=== PATIENT | male | born 1975 | race Caucasian/White ===

== ENCOUNTER 2020-04-20 09:21 | Emergency (ER) | payer OTHER ==
[~2020-04-20 09:21] MED LIST: ASPIRIN325 MG PO; AUGMENTIN 875-1 EACH PO; AZITHROMYCIN250 MG PO; CEFDINIR300 MG PO; DUONEB 2.5-0.5M1 AMP NEB; HYDROCODON-ACE1 EAC6 PO; LIPITOR20 MG PO; MEDROL 4MG DOSEP4 MG PO; NAPROSYN375 MG PO; NEXIUM20 MG PO; NORCO 5-325 TA1 EACH PO; PREDNISONE 20MG20 MG PO; PRILOSEC20 MG PO; VENTOLIN HFA IN18 GM INH; ZESTRIL5 MG PO; ZOFRAN4 MG PO
[2020-04-20 10:49] LABS: BASOPHIL 0.3 % (0-2); EOSINOPHIL 1.1 % (0-5); HCT 47.1 % (42.0-52.0); LYMPHOCYTE 12.4 % (15-48); MCH 30.4 pg (25.0-31.0); MCV 89.5 fL (78.0-100.0); MONOCYTE 6.1 % (0-12); MPV 9.6 fL (6.0-9.5); NEUTROPHIL 79.7 % (41-80); NRBC 0; PLT 253 K/uL (150-400); RBC 5.26 M/uL (4.70-6.00); RDW 13.1 % (11.5-14.0)
[2020-04-20 10:57] LABS: INR 0.98 (0.9-1.2); PROTHROMBIN TIME 12.3 SECONDS (11.4-13.6); PTT 30.1 SECONDS (22.2-34.7)
[2020-04-20 10:58] LABS: D-DIMER 0.54 ug/mLFEU (0.00-0.41)
[2020-04-20 11:11] LABS: PRO-BNP 21 pg/mL (<125)
[2020-04-20 11:15] LABS: ALBUMIN 3.8 g/dL (3.4-5.0); BILIRUBIN - TOTAL 0.3 mg/dL (0.2-1.0); BUN/CREAT RATIO (CALC) 20.2 RATIO; C-REACTIVE PROTEIN 0.3 mg/dL (<=0.90); CREATININE 1.04 mg/dL (0.67-1.17); GLOBULIN (CALCULATION) 3.9 g/dL; MAGNESIUM 1.9 mg/dL (1.8-2.4); POTASSIUM 4.1 mmol/L (3.5-5.1); TOTAL PROTEIN 7.7 g/dL (6.4-8.2)
[2020-04-20 11:37] LABS: LACTIC ACID 1.2 mmol/L (0.4-1.9)
[2020-04-20] MEDS ORDERED: MEDROL 4MG DOSEP4 MG PO (12:28)
[2020-04-20] MEDS ORDERED: VIBRAMYCIN100 MG PO (12:28)
[2020-04-20] MEDS ORDERED: VENTOLIN HFA18 GM INH (12:28)
[2020-04-20] MEDS ORDERED: NORCO 5-325 TA1 EACH PO (12:28)
== END 2020-04-20 12:45 | disposition home or self-care (01) ==
LOC: FER 09:21
PROVIDERS: Emergency Medicine
DX: J44.9 Chronic obstructive pulmonary disease, unspecified (principal); R07.81 Pleurodynia; I10 Essential (primary) hypertension; F17.210 Nicotine dependence, cigarettes, uncomplicated; Z87.01 Personal history of pneumonia (recurrent); Z20.822 Contact with and (suspected) exposure to COVID-19
CPT/HCPCS: 36415; 71275; 80053; 82550; 82728; 83605; 83615; 83735; 83880; 84145; 84484; 85025; 85379; 85610; 85730; 86140; 87040; 93005; J1170; J1885; J2405; Q9967; U0002

== ENCOUNTER 2020-07-10 06:07 | Emergency (ER) | payer OTHER ==
[~2020-07-10 06:07] MED LIST changes: +VENTOLIN HFA18 GM INH; +VIBRAMYCIN100 MG PO
[2020-07-10 06:57] LABS: BASOPHIL 0.5 % (0-2); EOSINOPHIL 1.3 % (0-5); HCT 48.7 % (42.0-52.0); MCH 30.5 pg (25.0-31.0); MCHC 34.9 g/dL (32.0-36.0); MCV 87.4 fL (78.0-100.0); MONOCYTE 7.2 % (0-12); MPV 9.1 fL (6.0-9.5); NEUTROPHIL 69.6 % (41-80); NRBC 0; PLT 231 K/uL (150-400); RBC 5.57 M/uL (4.70-6.00); WBC 10.4 K/uL (4.0-10.5)
[2020-07-10 07:11] LABS: ALBUMIN 3.9 g/dL (3.4-5.0); BILIRUBIN - TOTAL 0.6 mg/dL (0.2-1.0); BUN/CREAT RATIO (CALC) 22.9 RATIO; CREATININE 0.96 mg/dL (0.67-1.17); GLOBULIN (CALCULATION) 3.2 g/dL; POTASSIUM 4.2 mmol/L (3.5-5.1); TOTAL PROTEIN 7.1 g/dL (6.4-8.2)
[2020-07-10] MEDS ORDERED: MEDROL 4MG DOSEP4 MG PO (08:03)
[2020-07-10] MEDS ORDERED: PEPCID AC20 MG PO (08:03)
[2020-07-10] MEDS ORDERED: CARAFATE1 GM PO (08:03)
[2020-07-10 08:30] LABS: BILIRUBIN NEGATIVE (NEGATIVE); BLOOD NEGATIVE Ery/uL (NEGATIVE); CLARITY CLEAR (CLEAR); COLOR YELLOW (YELLOW); GLUCOSE (U) NORMAL (NORMAL); LEUKOCYTES NEGATIVE Leu/uL (NEGATIVE); NITRITE NEGATIVE (NEGATIVE); PROTEIN NEGATIVE (NEGATIVE); SPECIFIC GRAVITY 1.025 (1.001-1.030); UROBILINOGEN 0.2 mg/dL (0.2-1.0)
== END 2020-07-10 08:51 | disposition home or self-care (01) ==
LOC: FER 06:07
PROVIDERS: Emergency Medicine
DX: K21.9 Gastro-esophageal reflux disease without esophagitis (principal); M54.5 Low back pain; R10.13 Epigastric pain; R11.0 Nausea; J02.9 Acute pharyngitis, unspecified; I10 Essential (primary) hypertension; E78.5 Hyperlipidemia, unspecified; F17.210 Nicotine dependence, cigarettes, uncomplicated; Z98.52 Vasectomy status; Z79.899 Other long term (current) drug therapy; Z20.822 Contact with and (suspected) exposure to COVID-19
CPT/HCPCS: 36415; 72100; 80053; 81003; 85025; 87880; J1170; J1885; J2405; J7030; U0002

== ENCOUNTER 2021-05-28 09:02 | Emergency (ER) | payer OTHER ==
[~2021-05-28 09:02] MED LIST changes: +CARAFATE1 GM PO; +PEPCID AC20 MG PO
[2021-05-28 09:39] LABS: BASOPHIL 0.4 % (0-2); EOSINOPHIL 0.9 % (0-5); HCT 51.8 % (42.0-52.0); HGB 17.8 g/dl (13.2-18.0); LYMPHOCYTE 13.5 % (15-48); MCH 30.4 pg (25.0-31.0); MCHC 34.4 g/dL (32.0-36.0); MCV 88.4 fL (78.0-100.0); MONOCYTE 7.5 % (0-12); MPV 9.3 fL (6.0-9.5); NEUTROPHIL 77.3 % (41-80); NRBC 0; PLT 283 K/uL (150-400); RBC 5.86 M/uL (4.70-6.00); RDW 13.2 % (11.5-14.0); WBC 11.4 K/uL (4.0-10.5)
[2021-05-28 09:53] LABS: ALBUMIN 4.1 g/dL (3.4-5.0); BILIRUBIN - TOTAL 0.9 mg/dL (0.2-1.0); BUN/CREAT RATIO (CALC) 20.8 RATIO; CREATININE 1.06 mg/dL (0.67-1.17); GLOBULIN (CALCULATION) 3.6 g/dL; POTASSIUM 3.8 mmol/L (3.5-5.1); TOTAL PROTEIN 7.7 g/dL (6.4-8.2)
== END 2021-05-28 19:50 | disposition home or self-care (01) ==
LOC: FER 09:02
PROVIDERS: Emergency Medicine
DX: R07.9 Chest pain, unspecified (principal); I10 Essential (primary) hypertension; F17.200 Nicotine dependence, unspecified, uncomplicated; Z20.822 Contact with and (suspected) exposure to COVID-19
CPT/HCPCS: 36415; 71045; 80053; 83735; 84484; 85025; 93005; C9113; J2270; J2405; U0002

== ENCOUNTER 2021-11-06 15:11 | Emergency (ER) | payer OTHER ==
[2021-11-06 15:36] LABS: BASOPHIL 0.4 % (0-2); EOSINOPHIL 0.8 % (0-5); HCT 47.2 % (42.0-52.0); HGB 16.4 g/dl (13.2-18.0); LYMPHOCYTE 13.4 % (15-48); MCH 30.6 pg (25.0-31.0); MCHC 34.7 g/dL (32.0-36.0); MCV 88.1 fL (78.0-100.0); MONOCYTE 7.7 % (0-12); MPV 8.9 fL (6.0-9.5); NEUTROPHIL 77.4 % (41-80); NRBC 0; PLT 237 K/uL (150-400); RBC 5.36 M/uL (4.70-6.00); RDW 13.2 % (11.5-14.0); WBC 10.8 K/uL (4.0-10.5)
[2021-11-06 15:53] LABS: INR 1.1 (0.9-1.2); PROTHROMBIN TIME 13.9 SECONDS (11.9-13.9)
[2021-11-06 16:06] LABS: ALKALINE PHOSHATASE 97 U/L (46-116); ALT 51 U/L (16-63); AST 31 U/L (15-37); BILIRUBIN - TOTAL 0.8 mg/dL (0.2-1.0); BUN 17 mg/dL (7-18); BUN/CREAT RATIO (CALC) 14.9 RATIO; CHLORIDE 103 mmol/L (98-107); CO2 (BICARBONATE) 29 mmol/L (21-32); CREATININE 1.14 mg/dL (0.67-1.17); GLOBULIN (CALCULATION) 3.4 g/dL; GLUCOSE 114 mg/dL (74-106); POTASSIUM 3.9 mmol/L (3.5-5.1); TOTAL PROTEIN 7.4 g/dL (6.4-8.2)
== END 2021-11-06 21:30 | disposition home or self-care (01) ==
LOC: FER 15:11
PROVIDERS: Emergency Medicine
DX: R07.89 Other chest pain (principal); I25.10 Atherosclerotic heart disease of native coronary artery without angina pectoris; I10 Essential (primary) hypertension; F17.210 Nicotine dependence, cigarettes, uncomplicated; Z28.310 Unvaccinated for COVID-19; Z95.5 Presence of coronary angioplasty implant and graft
CPT/HCPCS: 36415; 71045; 80053; 84484; 85025; 85610; 85730; 93005; J1170; J2405